=== PATIENT | female | born 1935 | race Caucasian/White ===

== ENCOUNTER 2017-07-28 14:09 | Emergency (ER) | payer MEDICARE, OTHER ==
[~2017-07-28] VITALS: Ht 162.6 cm; Wt 67.3 kg
[~2017-07-28 14:09] MED LIST: ALLEGRA180 M1 PO; D32000 UNIT PO; DESOWEN0.055 EX; DOMPERIDONE PO; EC-81 ASPIRIN81 MG PO; FLONASE NASAL50 MCG; FLOVENT HF110 MCG/AC IN; KEFLEX500 M1 PO; LEVOTHYROXIN50 MCG PO; LINZESS145 MCG PO; LIPITOR80 MG PO; MELATONIN3 MG PO; METAN1 OR; METAN3 PO; METO50TA52 PO; MULTI VITAMN PO; NITROGLYCER0.4 MG SL; NORVASC OR; ONDANSETRON4 MG PO; PONARIS; PRILOSEC40 MG PO; PROAIR HFA IN; PROTONIX40 MG PO; PYRIDIUM200 MG PO; RETAINE CMC 0.5% OP; VAGIFEM10 MCG VA; VAGISIL VA; ZYRTEC10 MG PO
[2017-07-28] MEDS ORDERED: FLUCONAZOLE200 MG PO (14:54)
[2017-07-28] MEDS ORDERED: BIAXIN500 MG PO (14:57)
[2017-07-28] MEDS ORDERED: LEVOCETIRIZINE D5 MG PO (14:57)
[2017-07-28] MEDS ORDERED: ATORVASTATIN CA80 MG PO (14:59)
[2017-07-28] MEDS ORDERED: PANTOPRAZOLE SO40 M1 PO (14:59)
[2017-07-28] MEDS ORDERED: LEVOTHYROXIN25 MC1 PO (14:59)
[2017-07-28] MEDS ORDERED: ASPIRIN 8181 MG PO (15:02)
[2017-07-28] MEDS ORDERED: MULTIVITAMI1 PO (15:02)
[2017-07-28 15:10] VITALS: BP 124/79
== END 2017-07-28 15:10 | disposition home or self-care (01) ==
LOC: ED 14:09
DX: M79.661 Pain in right lower leg (principal); R22.41 Localized swelling, mass and lump, right lower limb; R50.9 Fever, unspecified